=== PATIENT | male | born 1990 | race Caucasian/White ===

== ENCOUNTER 2020-01-22 18:46 | Emergency (ER) | payer OTHER, SELFPAY ==
[2020-01-22 18:55] VITALS: BP 151/92; PULSE 78; RESP 20; TEMP 36.9; O2SAT 96
--- NOTE | 2020-01-22 19:06 | ED.URI ---
HPI - URI/Sore Throat General Chief Complaint: Upper Respiratory Infection Stated Complaint: SORE THROAT Source: patient and RN notes reviewed Limitations: no limitations History of Present Illness HPI Narrative: The obese patient, a non-smoker/occasional drinker, presents with sore throat. Patient states he has about a 4 to 5-day history of sore throat with possible white spots . No fever measured, earache, vomiting/diarrhea/dehydration, loss of taste/smell, travel history, sick family, rash. Symptoms are mild, worse upon eating Related Data Home Medications Medication Instructions Recorded Confirmed indomethacin 01/22/20 Allergies Allergy/AdvReac Type Severity Reaction Status Date / Time No Known Allergies Allergy Verified 01/22/20 19:00 Review of Systems Review of Systems: Narrative: The patient has been informed that they may have pre-hypertension or Hypertension based on a BP reading in the department. I recommend that the patient call the primary care provider listed on their discharge instructions or a physician of their choice this week to arrange follow up for further evaluation of possible pre-hypertension or Hypertension General/Constitutional: No weight loss,fever Eyes: N0: Redness,discharge Ears/Nose/Throat: No: Epistaxis,ear discharge Respiratory: Denies: Hemoptysis Gastrointestinal: No Vomiting, Bleeding-rectal Skin: No Lumps, eruption Neurologic: No Focal Weakness,Sz Hematologic: Denies: Petechiae/Purpura Psychiatric: No: Suicida ideationl All Other Systems: Reviewed and Negative PMFSH Comments At time of signature, agree with nursing past medical, surgical, social and family history. There is no relevant family history pertinent to the presenting complaint Exam Narrative: Exam Narrative: General Appearance: Obese/well nourished, Conjunctiva clear Ears: Auditory canal normal, TM normal Nose: Rhinorrhea, Mucousal erythema Mouth/Throat: MM moist, Uvula midline, Pharyngeal erythema Neck: Supple, No adenopathy Respiratory: No respiratory distress,, airway patent Musculoskeletal: Non tender, Normal strength Skin: Warm, Dry Neurological: A&O x3, Normal affect Course Vital Signs Vital signs: Vital Signs Temperature 98.5 F 01/22/20 18:55 Pulse Rate 78 01/22/20 18:55 Respiratory Rate 20 01/22/20 18:55 Blood Pressure 151/92 H 01/22/20 18:55 Pulse Oximetry 96 01/22/20 18:55 Temperature 98.5 F 01/22/20 18:55 Pulse Rate 78 01/22/20 18:55 Respiratory Rate 20 01/22/20 18:55 Blood Pressure 151/92 H 01/22/20 18:55 Pulse Oximetry 96 01/22/20 18:55 Discharge Plan Discharge Clinical Impression: Pharyngitis Qualifiers: Pharyngitis/tonsillitis etiology: unspecified etiology Qualified Code(s): J02.9 - Acute pharyngitis, unspecified Patient Disposition: Home, Self-Care Condition: Stable Instructions: Antibiotic Form, Pharyngitis (ED) Prescriptions: New azithromycin 250 mg tablet See Rx Instructions .ROUTE .COMPLEX Qty: 6 RF: 0 Lidocaine Viscous 2 % solution 5 ml MUCOUS MEM QID PRN (Reason: pain) Qty: 100 RF: 0 No Action indomethacin RF: 0 Other Ambulatory Orders: SARS-CoV-2 RNA, Qual RT-PCR (Routine) Location: Determined by Patient Ordered By: Heriberto Leonardo Follow-up/Referrals: Oscar,Dimitris Klein MD [Primary Care Provider] -
== END 2020-01-22 19:15 | disposition home or self-care (01) ==
PROVIDERS: Emergency Provider Emergency Medicine; PCP Family Medicine
DX: J02.9 Acute pharyngitis, unspecified (principal); Z20.828 Contact with and (suspected) exposure to other viral communicable diseases; M10.9 Gout, unspecified
CPT/HCPCS: 99203; G0463

== ENCOUNTER 2020-01-24 07:48 | Outpatient (NON) | payer OTHER, SELFPAY ==
[2020-01-25 13:44] LABS: SARS-CoV-2 RNA PCR Negative
== END 2020-01-24 07:49 ==
LOC: ANHCOVIDDT 07:50
PROVIDERS: PCP Family Medicine; Visit Provider Emergency Medicine
DX: Z20.828 Contact with and (suspected) exposure to other viral communicable diseases (principal); J02.9 Acute pharyngitis, unspecified
CPT/HCPCS: 87635; C9803; U0003